=== PATIENT | male | born 1960 | race Two or more races ===

== ENCOUNTER 2018-11-12 10:53 | Emergency (ER) | payer BC, OTHER ==
[~2018-11-12] VITALS: Ht 182.9 cm; Wt 113.9 kg
[~2018-11-12 10:53] MED LIST: ASPI-605 PO; CLOP75TA15 PO; EZET1TAB26 PO; FISH OIL 1,2001 EAC1 PO; GLYB1TAB2 PO; HYDR12.55 PO; LOSA1TAB42 PO; SIMV20TA2 PO; SITA100T PO
--- NOTE | 2018-11-12 11:37 | NUR ---
PT BIBSELF FOR ABDOMINAL PAIN SATRTED LAST NIGHT, ON ATB TX FOR H.PYLORI STARTED YESTERDAY, PT IS AAOX4, NOT IN RESIRATORY DISTRESS, KEPT RESTED AND COMFORTABLE, WILL CONTINUE TO MONITOR.
--- NOTE | 2018-11-12 13:14 | NUR ---
AT BEDSIDE FOR EVAL.
[2018-11-12] MEDS ORDERED: FAMOTIDINE/PF INJ 20 MG/2 ML VIAL IV ONE ×2 (13:30→13:42)
[2018-11-12] MEDS ORDERED: MORPHINE SULFATE INJ 2 MG/ML DISP.SYRIN IV ONE (13:30)
[2018-11-12] MEDS ORDERED: IV NS 0.9% 1,000 ML BAG IV ONE (13:30)
[2018-11-12] MEDS ORDERED: MORPHINE SULFATE INJ 2 MG/ML DISP.SYRIN ONE (13:41)
[2018-11-12 13:42] LABS: BASOPHILS # (AUTO) 0.1 /CMM (0.0-0.2); BASOPHILS % (AUTO) 0.4 % (0.0-2.0); EOSINOPHILS % (AUTO) 0.5 % (0.0-6.0); HEMATOCRIT 45 % (39-51); HEMOGLOBIN 15.3 g/dL (13.5-17.5); LYMPHOCYTES % (AUTO) 13.1 % (20.0-44.0); MEAN CORPUSCULAR HGB CONC 34 g/dl (31.0-36.0); MEAN CORPUSCULAR VOLUME 94 fL (80-96); MONOCYTES % (AUTO) 6.8 % (2.0-12.0); NEUTROPHILS # (AUTO) 11.9 /CMM (1.8-8.9); NEUTROPHILS % (AUTO) 79.2 % (43.0-81.0); PLATELET COUNT (AUTO) 246 /CMM (150-450); RED BLOOD CELL COUNT(AUTO) 4.77 MIL/uL (4.5-6.0)
--- NOTE | 2018-11-12 13:45 | NUR ---
IV LINE ESTABLISHED, BLOOD DRAWNED AND SENT TO LAB.
[2018-11-12 13:56] LABS: ALBUMIN 3.8 g/dL (3.4-5.0); BILIRUBIN,DIRECT 0.1 mg/dL (0.0-0.2); BILIRUBIN,TOTAL 0.4 mg/dL (0.2-1.0); CALCIUM, SERUM 8.9 mg/dL (8.5-10.1); CREATININE 0.9 mg/dL (0.6-1.3); POTASSIUM 4.2 mmol/L (3.5-5.1); TOTAL PROTEIN, SERUM 7.5 g/dL (6.4-8.2)
--- NOTE | 2018-11-12 14:00 | NUR ---
TECH AT BEDSIDE FOR US.
[2018-11-12 15:21] VITALS: BP 135/76
--- NOTE | 2018-11-12 15:33 | NUR ---
IV removed. Catheter intact and site benign. Pressure and 4x4 applied to site. No bleeding noted. Patient discharged to home in stable condition. Written and verbal after care instructions given. Patient verbalizes understanding of instruction.
== END 2018-11-12 15:45 | disposition home or self-care (01) ==
LOC: ER 10:56
DX: R10.13 Epigastric pain (principal); I10 Essential (primary) hypertension; E11.9 Type 2 diabetes mellitus without complications; Z88.0 Allergy status to penicillin; Z79.899 Other long term (current) drug therapy; Z79.82 Long term (current) use of aspirin
CPT/HCPCS: 36415; 76700; 80048; 80076; 83690; 85025; 93005; 96374; 96375; 99284; J2270; J3490; J7030